=== PATIENT | female | born 1970 | race Caucasian/White ===

== ENCOUNTER → 2019-02-05 | Outpatient (REF) | payer BC ==
[2019-02-10 14:11] LABS: HPV HYBRID CAPTURE II Negative (Negative)
== END ==
LOC: M LAB LCGH 12:46
PROVIDERS: ATTEND Nurse Practitioner Adult Health
DX: R87.610 Atypical squamous cells of undetermined significance on cytologic smear of cervix (ASC-US) (principal)
CPT/HCPCS: 87624; G0123